=== PATIENT | male | born 1975 | race Caucasian/White ===

== ENCOUNTER 2020-03-01 16:18 | Outpatient (CLI) | payer OTHER ==
--- NOTE | 2020-03-03 09:11 | MRI Report ---
PROCEDURE: Shoulder RT W/O INDICATIONS: RT ROTATOR CUFF TEAR TECHNIQUE: Noncontrast oblique coronal T2 fast spin echo with fat saturation, oblique sagittal T1 spin echo and T2 fast spin echo with fat saturation, axial T1 spin echo and T2 fast spin echo with fat saturation t hrough the shoulder. COMPARISON: None. FINDINGS: Image quality: Excellent. Rotator cuff: Supraspinatus and infraspinatus tendons appear grossly intact. There is possible very subtle bursal s urface fraying of the supraspinatus tendon. And teres minor tendon appears intact. Subscapularis tend on appears intact. No atrophy of the rotator cuff muscles. There is minimal/questionable diffuse geographic edema involving the teres minor seen on image 12/801 raising the possibility of early denervation versus strain. However, recommend clinical correlation given the very subtle MR appearance. Quadrilateral space appears unremarkable Bones and bursae: No bone marrow contusions or fractures. Mild acromioclavicular joint degeneration. The acromion demonstrates conventional anatomy, without an os acromiale. Trace subacromial/subdeltoid bursal fluid is present. Capsule and soft tissues: Labrum: Incidental sublabral foramen. There is mild hypertrophy and amorphous intrasubstance signal c hange involving the anterior inferior segment of the labrum, potentially representing chronic tear or advanced degeneration. There is mild adjacent chondral loss. Elsewhere, labrum appears grossly intact. The long head of the biceps tendon demonstrates normal location and morphology. The rotator interval appears normal, without fibrosis. The coracohumeral ligament is normal in thickness. IMPRESSION: Minimal bursal surface fraying of the supraspinatus, with trace subacromial-subdeltoid bursitis. Over all, no definite discrete rotator cuff tear Chronic appearing anteroinferior labral tear or advanced degeneration with mild partial-thickness adj acent chondral loss. Questionable edema involving the teres minor as discussed above. Please see discussion and correlate with exam findings. Reviewed by: Jere Chavez MD on 03/03/2020 9:10 AM PDT Approved by: Jere Chavez MD on 03/03/2020 9:10 AM PDT Station ID: [id number]
== END 2020-03-01 16:19 | disposition home or self-care (01) ==
LOC: DI 16:18
PROVIDERS: ATTEND Physician Assistant
DX: M75.81 Other shoulder lesions, right shoulder (principal); M75.51 Bursitis of right shoulder

== ENCOUNTER 2022-11-03 12:18 | Emergency (ER) | payer OTHER ==
[2022-11-03 13:19] LABS: BILIRUBIN,URINE NEGATIVE (NEGATIVE); GLUCOSE, URINE (UA) NEGATIVE (NEGATIVE); KETONES,URINE (UA) NEGATIVE (NEGATIVE); LEUKOCYTE ESTERASE, URINE NEGATIVE (NEGATIVE); NITRITE,URINE NEGATIVE (NEGATIVE); OCCULT BLOOD,URINE MODERATE (NEGATIVE); PROTEIN,URINE NEGATIVE (NEGATIVE); UROBILINOGEN,URINE 0.2 (NORMAL) E.U./dL (NORMAL)
[2022-11-03 13:21] LABS: CLARITY,URINE CLEAR (CLEAR)
--- NOTE | 2022-11-03 13:31 | ED Physician Documentation ---
PD HPI ABD PAIN - Stated complaint Stated Complaint: LT BACK PX - Chief complaint Chief Complaint: Abd Pain - History obtained from History obtained from: Patient - History of Present Illness Timing - onset: How many hours ago (few hours ago during the night, was awakened by severe left flank pain lasted couple of hours, then lessened some and moved to left lower abd. still has aching feeling flank and low abd. not resolved.) Pain level max: 10 Pain level now: 2 Review of Systems Constitutional: denies: Fever, Chills GI: reports: Abdominal Pain (left flank severely initially then migrated to left abd/low abd and pain decreased but has not fully resolved.), Nausea. denies: Diarrhea PD PAST MEDICAL HISTORY - Past Medical History Cardiovascular: None Respiratory: None Endocrine/Autoimmune: None : Other (no prior history of kidney stones. ) - Allergies Allergies/Adverse Reactions: Allergies Allergy/AdvReac Type Severity Reaction Status Date / Time No Known Drug Allergies Allergy Verified 11/03/22 12:25 PD ED PE NORMAL - Vitals Vital signs reviewed: Yes - General General: Alert and oriented X 3, Well developed/nourished - Cardiac Cardiac: RRR, No murmur - Respiratory Respiratory: Clear bilaterally - Abdomen Abdomen: Normal bowel sounds, Soft, Non tender, Non distended, No organomegaly - Male Male : Deferred - Rectal Rectal: Deferred - Back Back: No spinal TTP, Other (some tenderness to percussion left flank. ) - Derm Derm: Normal color, Warm and dry, No rash Results - Vitals Vitals: Oxygen O2 Source Room air - Labs Labs: Laboratory Tests 11/03/22 13:13 Urine Color YELLOW Urine Clarity CLEAR Urine pH 6.0 Ur Specific [place] 1.020 Urine Protein NEGATIVE Urine Glucose (UA) NEGATIVE Urine Ketones NEGATIVE Urine Occult Blood MODERATE H Urine Nitrite NEGATIVE Urine Bilirubin NEGATIVE Urine Urobilinogen 0.2 (NORMAL) Ur Leukocyte Esterase NEGATIVE Urine RBC 0-5 Urine WBC 0-3 Ur Squamous Epith Cells FEW Squamous Urine Bacteria Few Ur Microscopic Review INDICATED Urine Culture Comments NOT INDICATED - Rads (name of study) KUB CT Radiology: Prelim report reviewed (2 mm stone in bladder. Mild left hydronephrosis. no other kidney stones. patient given copy of his ct report. ), See rad report PD Medical Decision Making - ED course Complexity details: reviewed results (small 2-3 mm stone in bladder. mild hydronephrosis of left. no stones in kidneys. no other acute abnormality.), considered differential (symptoms onset and severity with lessening now seems most c/w kidney stone that has moved distally or has passed. he still has aching in flank like 'someone is punching me'. So will get ct scan to eval for size and location or other cause.), d/w patient Reviewed Lab Results: ct kub ordered and reviewed by me after discussed with the patient, shared decision to get ct scan. Drug Therapy Requiring Monitoring for Toxicity: offered to given toradol im but he said would prefer to just have po med. Otherwise po meds. Departure - Departure Disposition: 01 Home, Self Care Clinical Impression: Left sided abdominal pain, Ureterolithiasis Condition: Stable Record reviewed to determine appropriate education?: Yes Instructions: ED Stone Renal Passed Comments: Your pain appears to have been caused by a small kidney stone. It is visible in the bladder at this point so appears to have passed. It should clear from the bladder out without any problems. The continued aching pain in the flank/kidney area presumably is left over inflammation from having been stretched some with the back pressuring from the stone in the ureter. This should continue to decrease through the day and into tomorrow. You can use some ibuprofen 2 or 3 times daily and stay well-hydrated. Add Tylenol if needed for pains. Recheck if not completely improved over the next couple of days. A good finding is that there were no visible other stones in your kidneys at this point. The radiologist did not perceive any other abnormalities or causes for the pain. Discharge Date/Time: 11/03/22 15:23
[2022-11-03 13:45] LABS: RBC,URINE 0-5 /HPF (0-5); SQUAMOUS EPITHELIAL CELL,UR FEW Squamous (<= Few); WBC,URINE 0-3 /HPF (0-3)
[2022-11-03 13:46] LABS: BACTERIA,URINE Few /HPF (None Seen)
[2022-11-03] MEDS ORDERED: IBUPROFEN 800 MG TABLET PO STA (13:52)
--- NOTE | 2022-11-03 14:29 | CT Report ---
PROCEDURE: ABDOMEN/PELVIS WO INDICATIONS: left flank pain TECHNIQUE: Noncontrast 5 mm thick sections acquired from the diaphragms to the symphysis. 5 mm coronal and sagi ttal reformats were then performed. For radiation dose reduction, the following was used: automated exposure control, adjustment of mA and/or kV according to patient size. COMPARISON: None. FINDINGS: Image quality: Excellent. ABDOMEN: Lung bases: Lung bases are clear. Heart size is normal. Solid organs: Liver and spleen are normal in size. Gallbladder is unremarkable. Pancreas is normal in contours. No adrenal nodules. Kidneys are normal in size, without hydronephrosis or nephrolithi asis. Peritoneum and bowel: Unenhanced bowel loops demonstrate normal wall thickness and caliber. No free fluid or air. Colonic diverticula are present. Nodes and vessels: No retroperitoneal or mesenteric adenopathy by size criteria. Aorta and inferior vena cava are normal in caliber. Miscellaneous: No ventral hernias. PELVIS: Genitourinary: Bladder wall thickness is normal. There is a 2 mm calcification within the central p ortion of the posterior bladder. Miscellaneous: No inguinal hernias or adenopathy. Bones: No suspicious bony lesions. No vertebral body compression fractures. IMPRESSION: 2 mm calcification within the bladder. This could represent a recently passed stone. No renal obstruc tion. Minimal diverticulosis. Reviewed by: Sheeba Morrison MD on 11/03/2022 2:28 PM PST Approved by: Sheeba Morrison MD on 11/03/2022 2:28 PM PST Station ID: [id number]
[2022-11-03 15:23] VITALS: BP 136/87
== END 2022-11-03 15:23 | disposition home or self-care (01) ==
LOC: ED 12:18
DX: N13.2 Hydronephrosis with renal and ureteral calculous obstruction (principal)
CPT/HCPCS: 36415; 74176; 81001; 99284; A9270; 81003; 87086

== ENCOUNTER 2023-04-22 15:34 | Outpatient (CLI) | payer OTHER ==
--- NOTE | 2023-04-22 17:04 | XRAY Report ---
PROCEDURE: Foot 3 View LT INDICATIONS: ACUTE LT HEEL PX TECHNIQUE: 3 views of the foot were acquired. COMPARISON: None. FINDINGS: Bones: No fractures or dislocations. No suspicious bony lesions. Soft tissues: No suspicious soft tissue calcifications or masses. IMPRESSION: No acute bony abnormality. Reviewed by: Ameya Myles MD on 04/22/2023 5:03 PM PDT Approved by: Ameya Myles MD on 04/22/2023 5:03 PM PDT Station ID: [id number]
== END 2023-04-22 15:35 | disposition home or self-care (01) ==
LOC: DI 15:34
PROVIDERS: ATTEND Podiatrist
DX: M79.672 Pain in left foot (principal)

== ENCOUNTER 2023-05-14 07:55 | Outpatient (CLI) | payer OTHER ==
--- NOTE | 2023-05-16 14:24 | MRI Report ---
PROCEDURE: ANKLE WO - LT INDICATIONS: PLANTER FASCIITIS TECHNIQUE: Noncontrast sagittal T1 spin echo and T2 fast spin echo with fat saturation, axial proton density fas t spin echo and T2 fast spin echo with fat saturation, coronal T1 spin echo and T2 fast spin echo wit h fat saturation through the ankle/hindfoot. COMPARISON: Left foot radiograph dated 04/22/2023. FINDINGS: Image quality: Excellent. Bones and joints: There is mild edema involving weight-bearing portion of posterior calcaneus near pl mayda fascia insertion. No discrete fracture line. No other area of abnormal marrow signal.. No hind foot coalitions. No osteochondral injuries of the talar dome. No pathologic joint effusions. Medial structures: The posterior tibialis, flexor digitorum longus, and flexor hallucis longus tendo ns are intact. The posterior tibial neurovascular bundle appears normal within the tarsal tunnel, wi thout extrinsic mass effect. The deep layer (anterior and posterior tibiotalar ligaments) and superf icial layer (tibionavicular, tibiospring, and tibiocalcaneal ligaments) of the deltoid ligament appea r normal. The spring ligament components (superomedial calcaneonavicular, medioplantar oblique calca neonavicular, and inferoplantar longitudinal ligaments) are intact. Lateral structures: The anterior talofibular, calcaneofibular, and posterior talofibular ligaments a ppear mildly thickened. More superiorly, the anterior and posterior tibiofibular ligaments appear no rmal, as is the intermalleolar ligament. The tibiofibular syndesmosis is normal in width at 2 mm or less. The peroneus longus and brevis tendons demonstrate normal location and morphology. Adjacent b rizwan peroneal tubercle and retrotrochlear prominence are normal in size. The sinus tarsi demonstrates normal fatty signal, without edema, fibrosis, or cyst formation. Visualized sinus tarsi components (cervical ligament, interosseous talocalcaneal ligament, roots of the inferior extensor retinaculum) appear normal. Anterior structures: The tibialis anterior, extensor hallucis longus, and extensor digitorum longus tendons appear intact. Posterior and plantar structures: Achilles tendon is intact. There is significant thickening involvi ng plantar fascia at its calcaneal insertion with surrounding soft tissue edema and intrasubstance T2 hyperintense signal. No abductor digiti quinti muscle atrophy to suggest Bass neuropathy. IMPRESSION: 1. Suggestion of mild to moderate grade plantar fasciitis. 2. Mild edema involving plantar aspect of calcaneus near plantar fascia insertion. No fracture or dis location. No osteochondral injuries of talar dome. 3. Low-grade sprain involving anterior and posterior talofibular ligaments and calcaneofibular ligame nt. Medial ankle ligaments are intact. 4. Ankle tendons are intact. Reviewed by: Naeem Chavez MD on 05/16/2023 2:22 PM PDT Approved by: Naeem Chavez MD on 05/16/2023 2:22 PM PDT Station ID: [id number]
== END 2023-05-14 07:56 | disposition home or self-care (01) ==
LOC: DI 07:55
PROVIDERS: ATTEND Podiatrist
DX: M72.2 Plantar fascial fibromatosis (principal); S93.492A Sprain of other ligament of left ankle, initial encounter; S93.412A Sprain of calcaneofibular ligament of left ankle, initial encounter

== ENCOUNTER 2023-12-15 13:59 | Day surgery (SDC) | payer OTHER ==
--- NOTE | 2023-12-15 09:02 | HISTORY & PHYSICAL EXAMINATION ---
PMH/PSH - Past Medical History Cardiovascular: positive: None Respiratory: positive: None Endocrine/Autoimmune: positive: None : positive: Other (no prior history of kidney stones. ) - Past Surgical History General: positive: Appendectomy Meds/Allgy - Home Medications Home Medications: Ambulatory Orders Medication Instructions Recorded Confirmed Cholecalciferol [Vitamin D3] 5,000 unit PO OAW 12/14/23 12/14/23 - Allergies Allergies/Adverse Reactions: Allergies Allergy/AdvReac Type Severity Reaction Status Date / Time No Known Drug Allergies Allergy Verified 11/03/22 12:25 Impression/Plan - Problem List Problem List: Pre-op H&P I am asked to see Anthony for a screening colonoscopy examination. GI symptoms: None Family history of colon cancer/polyps: No Personal history of colon polyps: No Last colonoscopy examination: Never Anticoagulant use: None The Past Family, Social and Personal History has been reviewed with the patient. ROS Denies fevers, chills, night sweats, shortness of breath, chest pain, change in the color of skin or urine, diarrhea, constipation, hematemesis, hematochezia, headache, visual changes, muscle aches. PE VSS, Afeb HEENT: Pupils equal, round and reactive to light, sclera anicteric, normal hearing, oral mucous membranes moist and without lesions NECK: Supple without lymphadenopathy, thyromegaly or carotid bruits LUNGS: Clear to auscultation without wheezing HEART: NSR without murmurs CHEST: Equal and symmetric expansion, no rib pain ABD: Soft, nontender, no hepatosplenomegaly, no hernias GROIN: No hernias or lymphadenopathy EXTREMITIES: Normal neuro and muscular exam SKIN: Anicteric Radiologic Studies N/A Assessment: Request for a screening colonoscopy examination. Plan: Screening colonoscopy under sedation through the Day Surgery admission protocol at [facility]. Consent: Anthony has been counseled for the procedure, it's indications, risks, benefits and expected outcome as well as alternative therapies. We specifically discussed risks associated with anesthesia and insertion of the endoscope into the large intestine which includes bleeding and injury to the colon which may require surgical intervention. Anthony understands, agrees, and consents to the proposed operative strategy and requests that we proceed with the procedure as outlined in our discussion. Rafael Chavez MD, FACS General Surgery Service
[2023-12-15 14:22] VITALS: O2SAT 100
[2023-12-15] MEDS: LACTATED RINGERS 1,000 ML IV ONE ×2 (14:29→15:34)
--- NOTE | 2023-12-15 14:44 | ANESTHESIA ---
Pre-Anesthesia VS, & Labs - Diagnosis SCREENING - Procedure COLONOSCOPY Vital Signs: Temp Pulse Resp BP Pulse Ox O2 Flow Rate 36.1 C L 52 L 12 120/82 H 100 12/15/23 14:16 12/15/23 14:16 12/15/23 14:16 12/15/23 14:16 12/15/23 14:16 Height: 6 ft 2 in Weight (kg): 92 kg Body Mass Index: 26.0 BMI Classification: Overweight - NPO Last Fluid Intake: 1100 Last Food Intake: >8HR Home Medications and Allergies Home Medications: Ambulatory Orders Cholecalciferol [Vitamin D3] 5,000 unit PO OAW 12/14/23 Cholecalciferol [Vitamin D3] 5,000 unit PO OAW 12/14/23 Allergies/Adverse Reactions: Allergies Allergy/AdvReac Type Severity Reaction Status Date / Time No Known Drug Allergies Allergy Verified 11/03/22 12:25 Anes History & Medical History - Anesthetic History Anesthesia Complications: reports: No previous complications Family history of Anesthesia Complications: Denies - Medical History Cardiovascular: reports: None Pulmonary: reports: None Gastrointestinal: reports: None Urinary: reports: Kidney stones Musculoskeletal: reports: Other (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, B ARM NEUROPATHY, TINGLING WITH NECK EXTENSION, REQUIRES SUPPORT) Endocrine/Autoimmune: reports: None Skin: reports: None - Surgical History General: reports: Appendectomy Orthopedic: reports: Other Results - EKG Results EKG Comparison: Reviewed EKG Exam General: Alert Dental: WNL Mouth Openin Fingerbreadth Neck Mobility: Reduced (SEVERELY REDUCED, PAIN/TINGLING DOWN ARM W EXTENSION) Mallampati classification: II Plan Anesthesia Type: Total IV Consent for Procedure(s) Verified and Reviewed: Yes Code Status: Attempt Resuscitation ASA classification: 2-Mild systemic disease Is this case an emergency?: No
[2023-12-15] MEDS ORDERED: LIDOCAINE-PF 2% 10 ML AMP SUBQ ONE (14:54)
[2023-12-15] MEDS ORDERED: PROPOFOL 200 MG/20 ML VIAL IVP ONE (15:23)
[2023-12-15 15:57] VITALS: BP 119/78
--- NOTE | 2023-12-15 16:08 | ANESTHESIA POST OP EVALUATION ---
Anesthesia Post Eval - Post Anesthesia Eval Vitals: Last Vital Signs Temp 36.2 C L 12/15/23 15:35 Pulse 84 12/15/23 15:50 Resp 14 12/15/23 15:50 BP 119/78 12/15/23 15:50 Pulse Ox 100 12/15/23 15:50 O2 Flow Rate CV Function Including HR & BP: Stable Pain Control: Satisfactory Nausea & Vomiting: Negative Mental Status: Baseline Respiratory Status: Airway Patent Hydration Status: Satisfactory Anesthesia Complications: None
== END 2023-12-15 14:00 | disposition home or self-care (01) ==
LOC: SDS 13:59
PROVIDERS: ATTEND Surgery
DX: Z12.11 Encounter for screening for malignant neoplasm of colon (principal); K57.30 Diverticulosis of large intestine without perforation or abscess without bleeding
CPT/HCPCS: 45378; J7120